=== PATIENT | female | born 1935 | race Caucasian/White ===

== ENCOUNTER → 2024-10-08 | Outpatient (CLI) | payer MEDICARE, BC, SELFPAY ==
[2024-10-08 16:53] LABS: Anion Gap 10 (7-16); BUN/Creatinine Ratio 20 Ratio (12-20); Blood Urea Nitrogen 22 mg/dL (9-23); Calcium 9.4 mg/dL (8.3-10.6); Carbon Dioxide 24.2 mMol/L (20.0-31.0); Chloride 96 mMol/L (98-107); Creatinine (Component) 1.1 mg/dL (0.6-1.3); Glucose 93 mg/dL (74-106); Osmolality,Calculated 264 (275-295); Potassium 4.8 mMol/L (3.4-5.1); Sodium 130 mMol/L (136-145); eGFR 48 See Note
== END | disposition home or self-care (01) ==
LOC: COPL 14:53
PROVIDERS: PCP Family Medicine; Referring Provider Nurse Practitioner Family; Visit Provider Nurse Practitioner Family
DX: E87.1 Hypo-osmolality and hyponatremia (principal)
CPT/HCPCS: 36415; 80048

== ENCOUNTER → 2024-11-04 | Outpatient (CLI) | payer MEDICARE, BC, SELFPAY ==
[2024-11-04 10:31] LABS: Basophils % (Auto) 1 % (0-2.5); Eosinophils # (Auto) 0.1 Thou/mm3 (0.0-0.5); Eosinophils % (Auto) 1 % (0-10); Hematocrit 34.5 % (36.0-46.0); Hemoglobin 12.1 g/dL (12.0-16.0); Immature Granulocytes % (Auto) 0 % (0-0); Immature Granulocytes Auto 0.02 Thou/mm3 (0.00-0.00); Lymphocytes # (Auto) 1.3 Thou/mm3 (1.0-4.8); Lymphocytes % (Auto) 26 % (10-50); Mean Corpuscular HGB Conc 35.1 g/dl (31.0-37.0); Mean Corpuscular Hemoglobin 30.7 pg (25.0-35.0); Mean Corpuscular Volume 88 fL (80-100); Monocytes # (Auto) 0.5 Thou/mm3 (0.0-0.8); Monocytes % (Auto) 11 % (0-12); Neutrophils % (Auto) 62 % (37-80); Nucleated Red Blood Cell % 0 /100 WBC (0); Platelet Count 176 Thou/mm3 (140-440); RDW Standard Deviation 40.8 fL (36.4-46.3); Red Blood Count 3.94 Miln/mm3 (4.00-5.20); White Blood Count 4.9 Thou/mm3 (3.6-11.0)
[2024-11-04 10:33] LABS: B-Type Natriuretic Peptide 230 pg/mL (0-100)
[2024-11-04 10:54] LABS: Alanine Aminotransferase 21 U/L (10-49); Albumin, Serum 4.6 gm/dL (3.4-4.8); Alkaline Phosphatase 63 U/L (46-116); Anion Gap 9 (7-16); Aspartate Amino Transferase 31 U/L (0-34); BUN/Creatinine Ratio 16 Ratio (12-20); Bilirubin,Direct 0.2 mg/dL (0.0-0.3); Bilirubin,Total 0.7 mg/dL (0.3-1.2); Blood Urea Nitrogen 18 mg/dL (9-23); Calcium 9.5 mg/dL (8.3-10.6); Cardiac Risk Estimate 2.3 RATIO (3.7-5.6); Chloride 102 mMol/L (98-107); Cholesterol 182 mg/dL (132-200); Creatinine (Component) 1.1 mg/dL (0.6-1.3); Free T4 (Free Thyroxine) 1.35 ng/dL (0.89-1.76); Glucose 106 mg/dL (74-106); HDL Cholesterol 79 mg/dL (40-60); LDL Cholesterol,Calculated 92 mg/dL (0-130); Osmolality,Calculated 272 (275-295); Potassium 4.7 mMol/L (3.4-5.1); Sodium 135 mMol/L (136-145); Thyroid Stimulating Hormone 0.49 uIU/mL (0.55-4.78); Total Protein 6.7 gm/dL (5.7-8.2); Triglycerides 53 mg/dL (30-150); eGFR 48 See Note
== END | disposition home or self-care (01) ==
PROVIDERS: PCP Internal Medicine Cardiovascular Disease; Referring Provider Internal Medicine Cardiovascular Disease; Visit Provider Internal Medicine Cardiovascular Disease
DX: I11.0 Hypertensive heart disease with heart failure (principal); I50.9 Heart failure, unspecified; E78.5 Hyperlipidemia, unspecified; I49.9 Cardiac arrhythmia, unspecified
CPT/HCPCS: 36415; 80048; 80061; 80076; 83880; 84439; 84443; 85025

== ENCOUNTER → 2025-03-02 | Outpatient (CLI) | payer MEDICARE, BC, SELFPAY ==
[2025-03-02 16:33] LABS: Basophils # (Auto) 0.0 Thou/mm3 (0.0-0.2); Basophils % (Auto) 1 % (0-2.5); Eosinophils # (Auto) 0.1 Thou/mm3 (0.0-0.5); Eosinophils % (Auto) 1 % (0-10); Hematocrit 32.6 % (36.0-46.0); Hemoglobin 11.4 g/dL (12.0-16.0); Immature Granulocytes Auto 0.01 Thou/mm3 (0.00-0.00); Lymphocytes # (Auto) 1.5 Thou/mm3 (1.0-4.8); Lymphocytes % (Auto) 29 % (10-50); Mean Corpuscular HGB Conc 35.0 g/dl (31.0-37.0); Mean Corpuscular Hemoglobin 31.2 pg (25.0-35.0); Mean Corpuscular Volume 89 fL (80-100); Monocytes # (Auto) 0.5 Thou/mm3 (0.0-0.8); Monocytes % (Auto) 9 % (0-12); Neutrophils # (Auto) 3.1 Thou/mm3 (1.8-7.7); Neutrophils % (Auto) 60 % (37-80); Nucleated Red Blood Cell # 0.00 Thou/mm3 (0.00-0.00); Nucleated Red Blood Cell % 0 /100 WBC (0); Platelet Count 170 Thou/mm3 (140-440); RDW Standard Deviation 41.3 fL (36.4-46.3); Red Blood Count 3.65 Miln/mm3 (4.00-5.20); White Blood Count 5.2 Thou/mm3 (3.6-11.0)
[2025-03-02 17:06] LABS: Glucose Estimated Average 117 mg/dL (80-131); Hemoglobin A1C 5.7 % Hgb (4.8-6.0)
[2025-03-02 17:11] LABS: Alanine Aminotransferase 16 U/L (10-49); Albumin, Serum 4.7 gm/dL (3.4-4.8); Albumin/Globulin Ratio 2.1 (1.2-2.2); Alkaline Phosphatase 58 U/L (46-116); Anion Gap 10 (7-16); Aspartate Amino Transferase 25 U/L (0-34); BUN/Creatinine Ratio 17 Ratio (12-20); Bilirubin,Total 0.9 mg/dL (0.3-1.2); Blood Urea Nitrogen 19 mg/dL (9-23); Calcium 9.9 mg/dL (8.3-10.6); Calcium (Corrected) 9.9 mg/dL (8.5-10.1); Carbon Dioxide 24.5 mMol/L (20.0-31.0); Cardiac Risk Estimate 2.4 RATIO (3.7-5.6); Chloride 96 mMol/L (98-107); Cholesterol 188 mg/dL (132-200); Creatinine (Component) 1.1 mg/dL (0.6-1.3); Free T4 (Free Thyroxine) 1.46 ng/dL (0.89-1.76); Globulin 2.2 gm/dL (2.3-3.5); Glucose 96 mg/dL (74-106); HDL Cholesterol 79 mg/dL (40-60); LDL Cholesterol,Calculated 92 mg/dL (0-130); Osmolality,Calculated 263 (275-295); Potassium 4.3 mMol/L (3.4-5.1); Sodium 130 mMol/L (136-145); Thyroid Stimulating Hormone 0.34 uIU/mL (0.55-4.78); Total Protein 6.9 gm/dL (5.7-8.2); Triglycerides 84 mg/dL (30-150); eGFR 48 See Note
[2025-03-08 07:17] LABS: Direct LDL* 100 mg/dL (<100)
== END | disposition home or self-care (01) ==
LOC: COPL 15:02
PROVIDERS: PCP Family Medicine; Referring Provider Nurse Practitioner Family; Visit Provider Nurse Practitioner Family
DX: I10 Essential (primary) hypertension (principal); Z13.220 Encounter for screening for lipoid disorders; Z13.1 Encounter for screening for diabetes mellitus; Z13.29 Encounter for screening for other suspected endocrine disorder
CPT/HCPCS: 36415; 80053; 80061; 83036; 83721; 84439; 84443; 85025